=== PATIENT | female | born 1970 | race Two or more races ===

== ENCOUNTER → 2023-11-20 | Day surgery (SDC) | payer MEDICARE, MEDICAID ==
[2023-11-13 15:25] LABS: Urine Bacteria None Seen /hpf (None Seen)
[2023-11-13 15:31] LABS: Basophils # (auto) 0 10 ^3/uL (0-0.2); Basophils % (auto) 0.4 % (0.0-2.0); Eosinophils # (auto) 0 10 ^3/uL (0-0.8); Eosinophils % (auto) 0.5 % (0.0-7.0); Hematocrit 36.7 % (36.0-46.0); Lymphocytes # (auto) 1.6 10 ^3/uL (0.4-5.4); Lymphocytes % (auto) 22.6 % (10.0-50.0); Mean Corpuscular Hemoglobin 27.1 pg (28.0-32.0); Mean Corpuscular Hgb Conc. 32.6 g/dL (32.0-36.0); Mean Corpuscular Volume 83.1 fL (80.0-100.0); Monocytes # (auto) 0.4 10 ^3/uL (0-1.3); Monocytes % (auto) 5.8 % (0.0-12.0); Neutrophils # (auto) 4.9 10 ^3/uL (1.6-8.6); Neutrophils % (auto) 70.7 % (37.0-80.0); Platelet Count (auto) 342 10^3/uL (140-450); Red Blood Cells 4.42 10^6/uL (4.0-5.20); Red Cell Distribution Width 15.8 % (11.8-14.3)
[2023-11-13 15:52] LABS: Albumin 4.5 g/dL (3.2-4.8); Alkaline Phosphatase 63 U/L (46-116); Anion Gap 5 (5-15); Aspartate Aminotransferase 12 U/L (13-40); BUN/Creatinine Ratio 12.7 (10.0-20.0); Bilirubin, Total 0.5 mg/dL (0.2-1.0); Blood Urea Nitrogen 10 mg/dL (9-23); Calcium 9.4 mg/dL (8.7-10.4); Carbon Dioxide 27 mmol/L (20-30); Chloride 108 mmol/L (98-107); Glucose 94 mg/dL (74-106); Potassium 4.1 mmol/L (3.5-5.1); Sodium 140 mmol/L (136-145); Total Protein 7.2 g/dL (5.7-8.2)
[2023-11-13 15:53] LABS: Alanine Aminotransferase 9 U/L (7-40); INR 1.01 (0.9-1.15); Partial Thromboplastin Time 26.5 SEC (24.5-34.5); Prothrombin Time 10.7 sec (9.3-11.8)
[2023-11-13 16:04] LABS: Urine Blood Negative /uL (Negative); Urine Budding Yeast OCCASIONAL /hpf (None Seen); Urine Clarity Turbid (Clear); Urine Color Light-Yellow (Yellow); Urine Mucus FEW (None Seen); Urine Protein, UAD Negative (Negative); Urine Specific Gravity 1.021 (1.001-1.035); Urine Urobilinogen Normal (Negative); Urine WBC 8 /hpf (0 - 5)
[~2023-11-20] VITALS: Ht 157.5 cm; Wt 97.5 kg
[~2023-11-20] MED LIST: BUPR-36 PO; CYAN-17 PO; DexAMETHasone SOD PHOS 10MG/1ML VIAL INJ ONE; ESTR1TAB5 PO; KETAMINE 50mg/ML 1ml syringe ONE; LIDOCAINE VISCOUS 2% 15ML UD ONE; MEPERIDINE HCL (25 MG/ML) 1ML VIAL ONE; MIDAZOLAM HCL 2MG/2ML 2ml VIAL (1mg/ml) ONE; PROPOFOL 10 MG/ML 20 ML IV ONE; ROSU5TAB5 PO; SEMA2INJ3 SC; fentaNYL CITRATE 100 MCG/2 ML VL ONE
[2023-11-20] MEDS: LIDOCAINE VISCOUS 2% 15ML UD MT ONE (12:21)
[2023-11-20 12:57] VITALS: TEMP 98.1; O2SAT 98
[2023-11-20 13:34] VITALS: BP 131/69; PULSE 65; RESP 14; O2SAT 95
== END | disposition home or self-care (01) ==
LOC: GI 08:48
PROVIDERS: ATTEND Internal Medicine Gastroenterology
DX: R10.30 Lower abdominal pain, unspecified (principal); K29.50 Unspecified chronic gastritis without bleeding; C18.2 Malignant neoplasm of ascending colon; D12.5 Benign neoplasm of sigmoid colon; K57.30 Diverticulosis of large intestine without perforation or abscess without bleeding; G47.33 Obstructive sleep apnea (adult) (pediatric); K21.9 Gastro-esophageal reflux disease without esophagitis; E11.9 Type 2 diabetes mellitus without complications; E03.9 Hypothyroidism, unspecified; F32.A Depression, unspecified; F41.9 Anxiety disorder, unspecified; Z88.8 Allergy status to other drugs, medicaments and biological substances; Z88.6 Allergy status to analgesic agent; Z98.51 Tubal ligation status
CPT/HCPCS: 36415; 43239; 45380; 45381; 45385; 80053; 81001; 85025; 85610; 85730; 88305; 88312; 88342; J1100; J2175; J2250; J2704; J3010; J7030

== ENCOUNTER 2024-01-22 13:52 | Emergency (ER) | payer MEDICARE, MEDICAID ==
[~2024-01-22] VITALS: Ht 154.9 cm; Wt 95.1 kg
[~2024-01-22 13:52] MED LIST changes: -DexAMETHasone SOD PHOS 10MG/1ML VIAL INJ ONE; -KETAMINE 50mg/ML 1ml syringe ONE; -LIDOCAINE VISCOUS 2% 15ML UD ONE; -MEPERIDINE HCL (25 MG/ML) 1ML VIAL ONE; -MIDAZOLAM HCL 2MG/2ML 2ml VIAL (1mg/ml) ONE; -PROPOFOL 10 MG/ML 20 ML IV ONE; -fentaNYL CITRATE 100 MCG/2 ML VL ONE
[2024-01-22 14:13] VITALS: BP 143/79; RESP 18; O2SAT 93
--- NOTE | 2024-01-22 14:16 | ED.PDOC ---
HPI Comments 53y F who presents to the ED for chief complaint of chest pain. Pt states she has been having chest pain since 0900 this AM. Pt states the pain is in the center of her chest, non-radiating, intermittent, sharp in nature, rating the pain 6/10 with no associated exacerbating or relieving factors. Pt has associated shortness of breath and constipation but denies diaphoresis, palpitations, nausea, vomiting, fever, cough, chills, headache or dizziness. Pt states she was recently diagnosed with colon cancer on Nov 26 2023 and states she is currently receiving chemo at [facility]. Pt otherwise denies any other symptoms at this time. Chief Complaint: Chest Pain Time Seen by MD: 14:12 Reviewed Notes: Nurses Notes, Medications, Allergies Allergies: Coded Allergies: Acetaminophen (Unverified Allergy, Intermediate, N/V, abdominal pain, 11/14/23) Codeine (Unverified Allergy, Intermediate, N/V, abdominal pain, 11/14/23) Home Meds Reported Medications Estradiol (Estrace) 1 Mg Tab, 0.5 MG PO DAILY, TAB 11/14/23 Rosuvastatin Calcium (Crestor) 5 Mg Tab, 5 MG PO DAILY, TAB 11/14/23 Bupropion Hcl (Wellbutrin Sr) 100 Mg Tab, 100 MG PO DAILY, TAB 11/14/23 Cyanocobalamin (B12) 1,000 Mcg Cap, 1000 MCG PO DAILY, CAP 11/14/23 Semaglutide (Ozempic) 2 Mg/3 Ml Inj, 2 MG SC QWEEKLY, INJ 11/14/23 Information Source: Patient Mode of Arrival: Ambulatory Brought in by: self Severity: Moderate Timing: Hours Duration: Since onset Prehospital treatment: None Location: Substernal Radiation: No Radiation Quality: Sharp Onset: At Rest Cardiac Risk Factors: Hyperlipidemia PE Risk Factors: None Modifying Factors: Nothing Associated Signs and Symptoms: SOB Past Medical History PAST MEDICAL HISTORY: Anxiety, Cancer, Depression, High Lipids Past Medical History (Other): PTSD, Surgical History: Cholecystectomy, Tubal Ligation Surgical History (Other): L ankle surgery TUMOR REGISTRAR History: Denies all TUMOR REGISTRAR Hx Family History Family History: Reviewed,noncontributory to illness Social History Smoker: Non-Smoker Alcohol: Denies ETOH Use Drugs: Denies Drug Use Lives In: Home Constitutional: denies: chills, diaphoresis, fatigue, fever, malaise, sweats, weakness, others EENTM: denies: blurred vision, double vision, ear bleeding, ear discharge, ear drainage, ear pain, ear ringing, eye pain, eye redness, hearing loss, mouth pain, mouth swelling, nasal discharge, nose bleeding, nose congestion, nose pain, photophobia, tearing, throat pain, throat swelling, voice changes, others Respiratory: reports: shortness of breath; denies: cough, hemoptysis, orthopnea, SOB at rest, SOB with excertion, stridor, wheezing, others Cardiovascular: reports: chest pain; denies: dizzy spells, diaphoresis, Dyspnea on exertion, edema, irregular heart beat, left arm pain, lightheadedness, palpitations, PND, syncope, others Gastrointestinal: reports: constipated; denies: abdomen distended, abdominal pain, blood streaked bowels, diarrhea, dysphagia, difficulty swallowing, hematemesis, melena, nausea, poor appetite, poor fluid intake, rectal bleeding, rectal pain, vomiting, others Genitourinary: denies: abnormal vagina bleeding, burning, dyspareunia, dysuria, flank pain, frequency, hematuria, incontinence, pain, , vagina discharge, urgency, others Neurological: denies: dizziness, fainting, headache, left sided numbness, left sided weakness, numbness, paresthesia, pre-existing deficit, right sided numbness, right sided weakness, seizure, speech problems, tingling, tremors, weakness, others Musculoskeletal: denies: back pain, gout, joint pain, joint swelling, muscle pain, muscle stiffness, neck pain, others Integumetry: denies: bruises, change in color, change in hair/nails, dryness, laceration, lesions, lumps, rash, wounds, others Allergic/Immunocompromised: denies: Difficulty Healing, Frequent Infections, Hives, Itching, others Hematologic/Lymphatic: denies: anemia, blood clots, easy bleeding, easy bruising, swollen glands, others Endocrine: denies: excessive hunger, excessive sweating, excessive thirst, excessive urination, flushing, intolerance to cold, intolerance to heat, unexplained weight gain, unexplained weight loss, others Psychiatric: denies: anxiety, bipolar disorder, depression, hopeless, panic disorder, schizophrenia, sleepless, suicidal, others All Other Systems: Reviewed and Negative Physical Exam General Appearance: Moderate Distress HEENT: Normal ENT Inspection, Pharynx Normal, TMs Normal Neck: Full Range of Motion, Non-Tender, Normal, Normal Inspection Respiratory: Chest Non-Tender, Lungs Clear, No Accessory Muscle Use, No Respiratory Distress, Normal Breath Sounds Cardiovascular: No Edema, No JVD, No Murmur, No Gallop, Normal Peripheral Pulses, Regular Rate/Rhythm Breast Exam: Deferred Gastrointestinal: No Organomegaly, Non Tender, No Pulsatile Mass, Normal Bowel Sounds, Soft Genitalia: Deferred Pelvic: Deferred Rectal: Deferred Extremities: No calf tenderness, Normal capillary refill, Normal inspection, Normal range of motion, Non-tender, No pedal edema Musculoskeletal : Apperance: Normal Neurologic: Alert, morning babysitter II-XII nml as Tested, No Motor Deficits, Normal Affect, Normal Mood, No Sensory Deficits Cerebellar Function: Normal Reflexes: Normal Skin: Dry, Normal Color, Warm Lymphatic: No Adenopathy EKG EKG : Pulse Rate (adult): 66 [place]: Normal Cardiac Rhythm: NSR Block: None Hypertrophy: None ST: Normal Was a procedure done? Was a procedure done?: No CP Differential Dx Differential Diagnosis: Angina, Anxiety / Panic Attack Differential Diagnosis: Chest Wall Pain, Pericarditis, Pneumonia X-Ray, Labs, Meds, VS Vital Signs Date Time Temp Pulse Resp B/P (MAP) Pulse Ox O2 Delivery O2 Flow Rate FiO2 01/22/24 14:13 98.0 80 18 143/79 (100) 93 Lab Test 01/22/24 15:01 01/22/24 14:00 Range/Units Troponin I High Sensitivity Pending < 3 L </=34 ng/L White Blood Count 6.5 4.4-10.8 10^3/uL Red Blood Count 4.27 4.0-5.20 10^6/uL Hemoglobin 11.2 L 12.2-16.2 g/dL Hematocrit 34.4 L 36.0-46.0 % Mean Corpuscular Volume 80.5 80.0-100.0 fL Mean Corpuscular Hemoglobin 26.3 L 28.0-32.0 pg Mean Corpuscular Hemoglobin Concent 32.7 32.0-36.0 g/dL Red Cell Distribution Width 17.9 H 11.8-14.3 % Platelet Count 279 140-450 10^3/uL Mean Platelet Volume 7.2 6.9-10.8 fL Neutrophils (%) (Auto) 89.2 H 37.0-80.0 % Lymphocytes (%) (Auto) 6.9 L 10.0-50.0 % Monocytes (%) (Auto) 3.8 0.0-12.0 % Eosinophils (%) (Auto) 0.0 0.0-7.0 % Basophils (%) (Auto) 0.1 0.0-2.0 % Neutrophils # (Auto) 5.8 1.6-8.6 10 ^3/uL Lymphocytes # (Auto) 0.5 0.4-5.4 10 ^3/uL Monocytes # (Auto) 0.2 0-1.3 10 ^3/uL Eosinophils # (Auto) 0 0-0.8 10 ^3/uL Basophils # (Auto) 0 0-0.2 10 ^3/uL Nucleated Red Blood Cells 0.1 % Prothrombin Time 10.9 9.3-11.8 sec Prothrombin Time INR 1.03 0.9-1.15 Activated Partial Thromboplast Time 23.9 L 24.5-34.5 SEC Sodium Level 143 136-145 mmol/L Potassium Level 4.2 3.5-5.1 mmol/L Chloride Level 108 H 98-107 mmol/L Carbon Dioxide Level 25 20-31 mmol/L Anion Gap 10 5-15 Blood Urea Nitrogen 19 9-23 mg/dL Creatinine 0.87 0.550-1.02 mg/dL Glomerular Filtration Rate Calc 79 >90 mL/min BUN/Creatinine Ratio 21.8 H 10.0-20.0 Serum Glucose 139 H 74-106 mg/dL Calcium Level 9.7 8.7-10.4 mg/dL Magnesium Level Pending Total Bilirubin 0.4 0.2-1.0 mg/dL Aspartate Amino Transferase (AST) 13 13-40 U/L Alanine Aminotransferase (ALT) 12 7-40 U/L Alkaline Phosphatase 60 46-116 U/L B-Type Natriuretic Peptide 140.98 0-100 pg/mL Total Protein 6.5 5.7-8.2 g/dL Albumin 4.1 3.2-4.8 g/dL The CBC is within normal limits The chemistry panel is within normal limits. The patient's CBC is within normal limits. At this time, the patient had a chest x-ray which shows: No sign of any abnormalities The patient was troponin level came back negative x1 At this time, the patient had another episode of crushing chest pain The patient was being admitted to the hospitalist at this time. Images Reviewed?: Images reviewed and evaluated by me Time of 1ST Reevaluation: 14:45 Reevaluation 1ST: Unchanged Patient Education/Counseling: Diagnosis, Treatment, Prognosis Family Education/Counseling: No Family Present Departure 1 Departure Time of Disposition: 15:25 Impression: Primary Impression: Acute coronary syndrome Disposition: 09 ADMITTED INPATIENT Admit to: Tele Condition: Fair Critical Care Note Critical Care Time?: Yes (35 min-critical care time only) Stability Stability form required: Yes Unstable for transfer: Telemetry monitoring (Telemetry monitoring required), ED Physician Assesment (Clinical assesment) Heart Score Heart Score: Heart Score Response (Comments) Value History Slightly Suspicious 0 EKG Normal 0 Age 45-64 1 Risk Factors 1 or 2 risk factors 1 Troponin Normal limit 0 Total 2 I personally scribed for YINA GOMEZ MD ([email or web address]) on 01/22/24 at 14:16. Electronically submitted by Justice Altamirano ([email or web address]). YINA GOMEZ MD Jan 22, 2024 14:16
[2024-01-22 14:22] LABS: Basophils # (auto) 0 10 ^3/uL (0-0.2); Eosinophils # (auto) 0 10 ^3/uL (0-0.8); Hemoglobin 11.2 g/dL (12.2-16.2); Lymphocytes # (auto) 0.5 10 ^3/uL (0.4-5.4); Nucleated Red Blood Cells % 0.1 %; Platelet Count (auto) 279 10^3/uL (140-450); Red Cell Distribution Width 17.9 % (11.8-14.3)
[2024-01-22 14:23] LABS: Basophils % (auto) 0.1 % (0.0-2.0); Hematocrit 34.4 % (36.0-46.0); Lymphocytes % (auto) 6.9 % (10.0-50.0); Mean Corpuscular Hemoglobin 26.3 pg (28.0-32.0); Mean Corpuscular Hgb Conc. 32.7 g/dL (32.0-36.0); Mean Corpuscular Volume 80.5 fL (80.0-100.0); Monocytes # (auto) 0.2 10 ^3/uL (0-1.3); Monocytes % (auto) 3.8 % (0.0-12.0); Neutrophils # (auto) 5.8 10 ^3/uL (1.6-8.6); Neutrophils % (auto) 89.2 % (37.0-80.0); Red Blood Cells 4.27 10^6/uL (4.0-5.20); White Blood Cell 6.5 10^3/uL (4.4-10.8)
[2024-01-22 14:40] LABS: INR 1.03 (0.9-1.15); Partial Thromboplastin Time 23.9 SEC (24.5-34.5); Prothrombin Time 10.9 sec (9.3-11.8)
[2024-01-22 14:50] LABS: Alanine Aminotransferase 12 U/L (7-40); Alkaline Phosphatase 60 U/L (46-116); Anion Gap 10 (5-15); BUN/Creatinine Ratio 21.8 (10.0-20.0); Blood Urea Nitrogen 19 mg/dL (9-23); Calcium 9.7 mg/dL (8.7-10.4); Carbon Dioxide 25 mmol/L (20-31); Potassium 4.2 mmol/L (3.5-5.1); Sodium 143 mmol/L (136-145)
[2024-01-22 14:51] LABS: Albumin 4.1 g/dL (3.2-4.8); Bilirubin, Total 0.4 mg/dL (0.2-1.0); Total Protein 6.5 g/dL (5.7-8.2)
[2024-01-22 15:02] LABS: Aspartate Aminotransferase 13 U/L (13-40); Chloride 108 mmol/L (98-107); Glucose 139 mg/dL (74-106)
--- NOTE | 2024-01-22 15:19 | DVH ---
CHEST RADIOGRAPH Indication: CP Technique: Single frontal view of the chest was obtained COMPARISON: None FINDINGS: Lines and Tubes: Right chest port in satisfactory position. Lungs: Clear Pleura: No effusion. No pneumothorax. Cardiomediastinal contours: Unremarkable Bones: Unremarkable IMPRESSION: No acute disease.
[2024-01-22 15:22] VITALS: PULSE 70
--- NOTE | 2024-01-23 07:14 | ECG ---
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
--- NOTE | 2024-01-23 07:15 | ECG ---
[facility] Test Date: 2024-01-22 Test Time: 15:22:51 Pat Name: MORELIA JORGENSEN Department: ED Room: Gender: F Sybase Developer: MATEO : 1970 Requested By: YINA GOMEZ Order Number: [id number] Reading MD: Mike Tolliver Measurements Intervals [place] Rate: 70 P: 11 IA: 128 QRS: -30 QRSD: 102 T: 41 QT: 405 QTc: 437 Interpretive Statements Sinus rhythm Left axis deviation Abnormal R-wave progression, early transition Borderline T abnormalities, anterior leads Electronically Signed On 01-28-2024 13:35:07 PST by Mike Tolliver Please click the below link to view image of tracing.
== END 2024-01-22 17:19 | disposition left against medical advice (07) ==
LOC: ER 13:52
DX: I24.9 Acute ischemic heart disease, unspecified (principal); E78.5 Hyperlipidemia, unspecified; Z88.6 Allergy status to analgesic agent; Z79.899 Other long term (current) drug therapy; Z90.49 Acquired absence of other specified parts of digestive tract; Z90.89 Acquired absence of other organs; Z98.890 Other specified postprocedural states
CPT/HCPCS: 36415; 71045; 80053; 83735; 83880; 84484; 85025; 85610; 85730; 93005